=== PATIENT | female | born 1985 | race Caucasian/White ===

== ENCOUNTER 2017-06-30 19:15 | Emergency (ER) | payer OTHER ==
[~2017-06-30] VITALS: Ht 154.9 cm; Wt 73.9 kg
[~2017-06-30 19:15] MED LIST: ALBUTEROL17 GM INH; AMOXICILLIN500 M1 PO; ANTIBIOTIC; AUGMENTIN875 M1 PO; BACTRIM DS TABL1 TA1 PO; BETAMETHASONE D15 G2 TP; CLEOCIN PO; FLEXERIL10 MG PO; IBUPROFEN800 MG PO; KEFLEX500 MG PO; LORTAB 7.51 TAB 7.5/ PO; MOTRIN600 M1 PO; NO MEDICATIONS; PENICILLIN V P500 MG PO; PREDNISONE; PROTONIX20 MG; XANAX0.5 MG PO; ZITHROMAX1 G/PKT PO; ZYRTEC10 M2 PO
[2017-06-30] MEDS ORDERED: ALPRAZOLAM PO (19:38)
== END 2017-06-30 21:23 | disposition home or self-care (01) ==
LOC: SED 19:15
DX: J02.0 Streptococcal pharyngitis (principal); Z88.1 Allergy status to other antibiotic agents; Z88.8 Allergy status to other drugs, medicaments and biological substances
CPT/HCPCS: 87651; 96372; 99283; J0561